=== PATIENT | male | born 1940 | race Caucasian/White ===

== ENCOUNTER → 2016-10-04 08:08 | Outpatient (CLI) | payer MEDICARE ==
[2016-03-25 07:48] VITALS: BMI 33.8
[~2016-10-04 08:08] MED LIST: ASPIRIN81 MG PO; BRILINTA90 MG PO; GLIPIZIDE10 MG PO; HUMALOG 30100 UNITS/ SC; HYDROCHLOROTH12.5 M1 PO; ISOSORBIDE MONO30 M1 PO; LOPRESSOR25 MG PO; MULTI-DAY VITAM1 TAB PO; PLAVIX75 MG PO; PRAVACHOL20 MG PO; PRILOSEC20 MG PO; ZESTRIL40 MG PO
== END | disposition home or self-care (01) ==
LOC: D.NM 08:08
DX: K80.80 Other cholelithiasis without obstruction (principal); R10.9 Unspecified abdominal pain

== ENCOUNTER 2016-11-18 23:49 | Observation (INO) | payer MEDICARE ==
[~2016-11-18] VITALS: Ht 180.3 cm; Wt 109.2 kg
--- NOTE | ~2016-11-18 | HP ---
PATIENT: SHAN RODRIGUEZ MEDICAL RECORD: [id number] ACCOUNT: [id number] LOCATION:[address] : 38 ADMISSION DATE: 11/19/16 HISTORY AND PHYSICAL EXAMINATION Admit Note DATE OF ADMISSION: 11/19/2016 DIAGNOSES: 1. Non-Q-wave myocardial infarction. 2. Coronary artery disease. 3. Previous multivessel percutaneous transluminal coronary angioplasty stent. 4. Hypertension. 5. Hyperlipidemia. 6. Diabetes. HISTORY OF PRESENT ILLNESS: This is a gentleman who presents with increasing episodes of anginal chest discomfort, finally got severe enough yesterday to come to the Emergency Room. Unrelenting pain after multiple sublingual nitros, troponin is 3. He is pain free now. PHYSICAL EXAMINATION: GENERAL APPEARANCE: Well-nourished, well-developed, appears stated age. Level of distress, comfortable. PSYCHIATRIC: Mental status, alert, normal affect. Orientation, oriented to time, place and person. EYES: Lids and conjunctiva, noninjected. No discharge, no pallor. ENT: Lips, teeth, gums, normal dentition. Oropharynx, no cyanosis, no pallor. NECK: Carotid arteries, bilateral normal upstroke, no bruits, no thrills. JUGULAR VEINS: No jugular venous pressure or distention. CERVICAL LYMPH NODES: Nontender, nonenlarged. THYROID: Not enlarged. Nontender. No nodules. LUNGS: Respiratory effort, unlabored. CHEST: Normal curvature. No thoracic deformity. No chest wall tenderness. Percussion, resonant. Auscultation, clear. No wheezes, no rales, no rhonchi. CARDIOVASCULAR: Precordial exam, nondisplaced. No heaves or pericardial thrills. Rate and rhythm, regular. Heart sounds, normal S1, normal S2. No S3, no gallop, no rub. Systolic murmur, not heard. Diastolic murmur, not heard. EXTREMITIES: No cyanosis, no edema. Peripheral pulses, full and equal in all extremities, except as noted. No bruits appreciated. ABDOMEN: Soft, nondistended. Normal aorta. No bruit. Nontender. No masses. Liver, nontender, no hepatomegaly. Spleen, nontender, no splenomegaly. MUSCULOSKELETAL: No joint tenderness. No joint swelling. No erythema. NEUROLOGICAL: Normal gait, normal strength, normal tone. SKIN: Warm and dry. REVIEW OF SYSTEMS: The patient reports easy bruising but reports no swollen glands. The patient reports no fever, no night sweats, no significant weight gain, no significant weight loss. No significant exercise tolerance. The patient reports no dry eyes, no irritation, no vision change. Patient reports no difficulty hearing and no ear pain. Patient reports no frequent nose bleeds or nose and sinus problems. Patient reports on arm pain on exertion. No shortness of breath while lying down. No history of heart murmur. Patient reports no cough, no wheezing or coughing up blood. Patient reports no HISTORY AND PHYSICAL [id number] SHAN RODRIGUEZ abdominal pain, no vomiting. Normal appetite. No diarrhea and not vomiting blood. No nausea and no constipation. Patient reports no incontinence. No difficulty urinating. No hematuria. No increased frequency. Patient reports no muscle aches. No weakness, no arthralgias, no back pain. No swelling of the extremities. Patient reports no abnormal mole, no jaundice, no rashes. Reports no loss of consciousness. No weakness and no numbness. No seizures, dizziness, or headaches. The patient reports no depression, no sleep disturbance, feeling safe in a relationship and no alcohol abuse. Patient reports on fatigue. Reports no runny nose or sinus pressure. No itching, no hives, and no frequent sneezing. OVERALL IMPRESSION: Chest pain, non-Q-wave myocardial infarction. Last cardiac intervention 03/22/2016. Most likely he has recurrent hemodynamically significant coronary artery disease. We will proceed with coronary angiography in the a.m. Further care depends upon findings of the angiography. TRANSINT:[id number] Voice Confirmation ID: [id number] DOCUMENT ID: [id number] ADRIEL ACOSTA MD CC: [id number] DICTATION DATE: 11/19/16 1023 COMPOSITION STONE APPLICATOR: 11/19/16 1035 ADM IN [facility] [address] [place] [address]
--- NOTE | ~2016-11-18 | HEMODYNAMI ---
PATIENT:SHAN RODRIGUEZ MEDICAL RECORD: [id number] : 38 LOCATION:[facility] [address].2109 ADMISSION DATE: 11/19/16 Generatedon:11/20/20168:58 Patient name: SHAN RODRIGUEZ Patient #: [id number] SSN: [id number] : 1940 Date of study: 11/20/2016 Page: Of Hemodynamic Procedure Report Patient Data Patient Demographics Procedure consent was obtained First Name: SHAN Gender: Male Last Name: JENNIFER : 1940 [facility] Initial: Vinicio Age: 76 year(s) Patient #: [id number] Race: SSN: [id number] Additional ID: [id number] Contact details [address]: [address] [place] [address] State: [place] City: [place] Zip code: [address] Past Medical History History of disease Date Diagnosis Comments CAD Hypertension Diabetes Allergies Allergen Reaction Date Comments Reported Natural rubber 09/09/2014 and latex Other allergy 03/25/2016 Latex Bandages Natural rubber 11/20/2016 and latex Admission Admission Data Admission Date: 11/19/2016 Admission Time: 1:41 Room #: D.2109 Height (in.): 71 BSA: 2.32 (m2) Height (cm.): 180.34 BMI: 34.87 (kg/m2) Weight (lbs.): 250 Weight (kg.): 113.4 Lab Results Lab Result Date: 11/19/2016 Lab Result Time: 12:00 Biochemistry Name Units Result Min Max Creatinine mg/dl 1.1 --(--*-)-- 0.6 1.3 CBC Name Units Result Min Max Hemoglobin g/dl 14 --(*---)-- 13.5 17.5 Procedure Procedure Types Cath Procedure Diagnostic Procedure LHC LHC w/Coronaries PCI Procedure Coronary Stent Initial Miscellaneous Procedures Moderate Sedation up to 30 minutes Procedure Description Procedure Date Procedure Date: 11/20/2016 Procedure Start Time: 8:40 Procedure End Time: 8:58 Procedure Staff Name Function Alexander Adams MD Performing Physician Haris Magaña RT Scrub Kwadwo Almaguer RN Nurse Yodit Bennett RT Monitor Procedure Data Cath Procedure Fluoroscopy Diagnostic fluoroscopy Total fluoroscopy Time: 3.6 time: 3.6 min min Diagnostic fluoroscopy Total fluoroscopy dose: 776 dose: 776 mGy mGy Contrast Material Contrast Material Type Amount (ml) Isovue 300 80 Entry Location Entry Primary Successful Side Size Upsize Upsize Entry Closure [place] ccessful Closure Location (Fr) 1 (Fr) 2 (Fr) Remarks Device Remarks Femoral Right 6 Fr Mechanical artery Short Compression Estimated blood loss: 10 ml Diagnostic catheters Device Type Used For End Catheter Placement Diagnostic Terumo 5Fr LV Angiography Union 110cm catheter Diagnostic Terumo 5Fr Left Coronary Union 110cm catheter Angiography Diagnostic Terumo 5Fr Right Coronary Union 110cm catheter Angiography Procedure Complications No complications Procedure Medications Medication Administration Route Dosage Oxygen NC 2 l/min Heparin Flush Bag added to field 2 bags (1000units/500ml NS) 0.9% NaCl I.V. 100 ml/hr Radial Cocktail added to field 1 syringe (Verapomil 2mg/Nitro 400mcg/Heparin 1500units) Fentanyl I.V. 50 mcg Versed I.V. 1 mg Radial Cocktail I.A. 1 syringe (Verapomil 2mg/Nitro 400mcg/Heparin 1500units) Fentanyl I.V. 50 mcg Versed I.V. 1 mg Heparin Bolus I.V. 4000 units Hemodynamics Rest BSA: 2.32 (m2) O2 Consumption: Estimated: 274.25 (ml/min) O2 Consumption indexed : Estimated:118.21 (ml/min/m) Heart Rate: 79 (bpm) Snapshots Pre Cath Intra NCS Post Cath Vital Signs Time Heart Resp SPO2 etCO2 HO1zyev NIBP (mmHg) Rhythm Pain Sedation Rate (ipm) (%) (mmHg) (mmHg) Status Level (bpm) 8:23:22 84 18 94 0 0 167/93(137) NSR 0 (11) 10(A) , No pain 8:27:45 82 18 94 0 0 163/89(132) NSR 0 (11) 10(A) , No pain 8:32:05 85 17 94 0 0 174/98(151) NSR 0 (11) 10(A) , No pain 8:36:27 86 17 93 0 0 165/93(131) NSR 0 (11) 10(A) , No pain 8:40:47 83 19 91 0 0 157/91(124) NSR 0 (11) 9(A) , No pain 8:45:09 87 18 91 0 0 148/73(102) NSR 0 (11) 9(A) , No pain 8:49:27 87 16 94 0 0 148/79(102) NSR 0 (11) 9(A) , No pain 8:53:41 87 17 94 0 0 136/82(115) NSR 0 (11) 9(A) , No pain 8:56:56 86 18 95 0 0 151/81(115) NSR 0 (11) 9(A) , No pain Medications Time Medication Route Dose Verified Delivered Reason Notes Effectiveness by by 8:23:21 Oxygen NC 2 l/min Kwadwo Burkett Per physician Tripp Almaguer RN RN 8:23:32 Heparin Flush added 2 bags Kwadwo Burkett used for Bag to Tripp Almaguer RN procedure (1000units/500ml RN NS) 8:23:43 0.9% NaCl I.V. 100 Kwadwo Burkett Per physician ml/hr Tripp Almaguer RN RN 8:23:52 Radial Cocktail added 1 Kwadwo Burkett used for (Verapomil to syringe Tripp Almaguer RN procedure 2mg/Nitro RN 400mcg/Heparin 1500units) 8:36:28 Fentanyl I.V. 50 mcg Kwadwo Cruzy for sedation Tripp Almaguer RN RN 8:36:35 Versed I.V. 1 mg Kwadwo Burkett for sedation Tripp Almaguer RN RN 8:42:47 Radial Cocktail I.A. 1 Kwadwo Alexander for (Verapomil syringe Tripp Adams MD vasodilation 2mg/Nitro RN 400mcg/Heparin 1500units) 8:42:53 Fentanyl I.V. 50 mcg Kwadwo Kwadwo for sedation Tripp Almaguer RN RN 8:42:58 Versed I.V. 1 mg Kwadwo Kwadwo for sedation Tripp Almaguer RN RN 8:49:45 Heparin Bolus I.V. 4000 Kwadwo Burkett for units Tripp Almaguer RN anticoagulation mechanical technical service specialist Log Time Note 8:01:23 Kwadwo Almaguer RN sent for patient. Start room use. 8:01:24 Time tracking: Regular hours 8:01:28 Plan of Care:Hemodynamics will remain stable., Cardiac rhythm will remain stable., Comfort level will be maintained., Respiratory function will remain adequate., Patient/ family verbilizes understanding of procedure., Procedure tolerated without complication., Recovers from procedure without complications.. 8:12:07 Patient Height : 71 cm 8:12:10 Patient Weight : 250 kg 8:12:20 H&P Date Dictated: 11/19/2016 Within 30 days and on chart.. 8:12:24 Is patient on blood thinner?Yes 8:12:27 ACC The patient was administered the following blood thiners within the last 24 hours: ACCAspirin, ACCPlavix 8:12:30 Patient diabetic? Yes. 8:13:41 If diabetic: On Metformin? No 8:16:01 Patient received from PCU to CCL 1 Alert and oriented. Tansferred to table in Supine position. 8:16:02 Warm blankets applied, and iván hugger turned on for patient comfort. 8:16:03 Correct patient and procedure confirmed by team. 8:16:04 Signed procedure consent form obtained from patient. 8:16:05 ECG and BP/O2 sat monitors applied to patient. 8:16:06 Full Disclosure recording started 8:22:12 Vital chart was started 8:23:21 Oxygen 2 l/min NC was administered by Kwadwo Almaguer RN; Per physician; 8:23:32 Heparin Flush Bag (1000units/500ml NS) 2 bags added to field was administered by Kwadwo Almaguer RN; used for procedure; 8:23:43 0.9% NaCl 100 ml/hr I.V. was administered by Kwadwo Almaguer RN; Per physician; 8:23:52 Radial Cocktail (Verapomil 2mg/Nitro 400mcg/Heparin 1500units) 1 syringe added to field was administered by Kwadwo Almaguer RN; used for procedure; 8:29:02 Rhythm: sinus rhythm 8:29:06 Pre-procedure instructions explained to patient. 8:29:06 Pre-op teaching completed and patient verbalized understanding. 8:29:07 Family in waiting room. 8:29:09 Patient NPO since Midnight. 8:29:18 Patient allergic to Natural rubber and latex 8:29:20 Is the patient allergic to Iodine/contrast media? No. 8:29:27 Previous problem with sedation/anesthesia? No ? 8:29:28 Snore? Yes 8:29:31 Sleep apnea? No 8:29:32 Deviated septum? No 8:29:33 Opens mouth fully? Yes 8:29:34 Sticks out tongue? Yes 8:29:38 Airway obstruction? No ? 8:29:43 Dentures? Yes Out 8:29:47 Pre procedure: right dorsailis pedis pulse 2+ Normal; easily identifiable; not easily obliterated 8:29:49 Patient pain scale 0/10 ?. 8:29:54 IV patent on arrival in right hand with 0.9% NaCl at [facility]. 8:30:28 Lab Result : Creatinine 1.1 mg/dl 8:30:28 Lab Result : Hemoglobin 14 g/dl 8:30:32 Lab results completed and on chart. 8:30:36 Right Radial & Right Groin area was prepped with chlora-prep and draped in sterile fashion 8:30:37 Alarms reviewed by R. N. 8:30:37 Sharps counted by scrub and verified by R.N. 8:30:38 Final Timeout: patient, procedure, and site verified with staff and physician. All members of the team are in agreement. 8:30:40 Right Radial site verified by team. 8:30:43 Physical assessment completed. ASA score P 2 - A patient with mild systemic disease as per Alexander Adams MD. 8:30:45 Sedation plan: IV Moderate Sedation Versed, Fentanyl 8:32:38 Use device set Radial Dx 8:32:39 Acist Syringe opened to sterile field. 8:32:39 Medline Cath Pack opened to sterile field. 8:32:39 Bag Decanter opened to sterile field. 8:32:40 Terumo 6Fr Slender Glidesheath opened to sterile field. 8:32:40 St Charli 260cm J .035 wire opened to sterile field. 8:32:40 Acist Hand Control opened to sterile field. 8:32:41 Acist Manifold opened to sterile field. 8:32:41 Tegaderm 4 x 4 opened to sterile field. 8:32:41 MBrace Wrist Support opened to sterile field. 8:36:28 Fentanyl 50 mcg I.V. was administered by Kwadwo Almaguer RN; for sedation; 8:36:35 Versed 1 mg I.V. was administered by Kwadwo Almaguer RN; for sedation; 8:38:58 Zero performed for pressure channel P1 8:39:04 Baseline sample Acquired. 8:40:44 Procedure started. 8:40:48 Local anesthetic to right radial artery with Lidocaine 2% by Alexander Adams MD.INITIAL ACCESS ONLY 8:41:46 A 6 Fr Short sheath was inserted into the Right Femoral artery 8:42:24 A Diagnostic Terumo 5Fr Union 110cm catheter was advanced over the wire and used for LV Angiography. 8:42:47 Radial Cocktail (Verapomil 2mg/Nitro 400mcg/Heparin 1500units) 1 syringe I.A. was administered by Alexander Adams MD; for vasodilation; 8:42:53 Fentanyl 50 mcg I.V. was administered by Kwadwo Almaguer RN; for sedation; 8:42:58 Versed 1 mg I.V. was administered by Kwadwo Almaguer RN; for sedation; 8:43:29 LV gram done using PAIZ 8:43:34 EF : 35 % 8:43:38 Injector settings: Ml/sec: 5, Volume: 15, 8:43:54 A Diagnostic Terumo 5Fr Union 110cm catheter was advanced over the wire and used for Left Coronary Angiography. 8:45:58 A Diagnostic Terumo 5Fr Union 110cm catheter was advanced over the wire and used for Right Coronary Angiography. 8:46:47 Catheter removed. 8:47:07 Edgeley Data Stream CBOT Choice PT Extra Support J 300cm .014 gu opened to sterile field. 8:47:07 Cordis 6FR XBLAD 3.5 guide catheter opened to sterile field. 8:47:08 Merit BasixCompak Inflation Kit opened to sterile field. 8:48:36 6 Fr XBLAD 3.5 guide catheter was inserted over the wire 8:49:45 Heparin Bolus 4000 units I.V. was administered by Kwadwo Almaguer RN; for anticoagulation; 8:50:44 Choice PT ES wire advanced. 8:50:51 Inflation number: 1 A Euphora 2.5 x 20 Balloon was prepped and advanced across the Prox LAD, then inflated to 13 HANNAH for 0:05 (min:sec). 8:51:12 Balloon removed over the wire. 8:52:53 Inflation Number: 2 A Horatio OTW 2.5 x 22 stent was prepped and advanced across the Prox LAD. The stent was deployed at 13 HANNAH for 0:07 (min:sec). 8:53:08 Inflation number: 3 The stent balloon was then re-inflated across the Prox LAD to 17 HANNAH for 0:07 (min:sec). 8:53:26 Stent catheter was removed intact over wire. 8:53:26 Wire removed. 8:53:27 Guide catheter removed. 8:53:35 Sheath removed intact; hemostasis achieved with Mechanical Compression to the Right Femoral artery. 8:53:37 Procedure ended.(Physican Out) 8:54:25 Fluoroscopy time 03.60 minutes. 8:54:28 Flurop Dose total: 776 8:54:28 Fluoroscopy dose: 776 mGy 8:54:36 Contrast amount:Isovue 300 80ml. 8:54:38 Sharps counted by scrub and verified by R.N. 8:54:40 TR band inflated with 12cc of air. 8:54:41 Insertion/operative site no bleeding no hematoma. 8:54:47 Post right radial artery:stable, clean and dry 8:54:49 Post Procedure Pulses reassessed and unchanged 8:54:52 Post-procedure physical assessment completed. ASA score P 2 - A patient with mild systemic disease as per Alexander Adams MD. 8:54:57 Post procedure rhythm: unchanged. 8:55:00 Estimated blood loss: 10 ml 8:55:01 Post procedure instruction explained to patient.Patient verbalizes understanding. 8:55:01 Patient needs reinforcement of post procedure teaching. 8:55:11 Procedure type changed to Cath procedure, Diagnostic procedure, LHC, LHC w/Coronaries, PCI procedure, Coronary Stent Initial, Miscellaneous Procedures, Moderate Sedation up to 30 minutes 8:55:16 Procedure Complication : No complications 8:55:19 See physician's report for complete and final results. 8:56:10 Terumo TR Band Standard opened to sterile field. 8:56:40 Procedure and supply charges have been captured, reviewed, submitted and are correct. 8:58:21 Vital chart was stopped 8:58:23 Report given to PCU. 8:58:26 Patient transfered to PCU with Bed. 8:58:29 Procedure ended. 8:58:29 Full Disclosure recording stopped 8:58:35 End room use (Document Last) Intervention Summary Intervention Notes Time ActionType Lesion and Equipment Action# Pressure Duration Attributes Used 8:50:51 Inflate Prox LAD Euphora 1 13 00:05 balloon 2.5 x 20 Balloon 8:52:53 [address] stent Prox LAD Horatio OTW 2 13 00:07 2.5 x 22 stent 8:53:08 Reinflate Prox LAD Lonnie OTW 3 17 00:07 stent 2.5 x 22 balloon stent Device Usage Item Name Manufacture Quantity Catalog Number Hospital Part Current Minim al Lot# / Charge Number Stock Stock Serial# Code Acist Acist 1 68683 210011 128487 745224 20 Syringe Medical Systems Inc Medline Cardinal 1 [id number] 531012 12621 179010 5 Cath Pack Health Bag Microtek 1 2002S 497339 44387 636335 5 VODECLIC Inc. Terumo 6Fr Terumo 1 [id number] 959724 531681 629042 [address] Char[address] St Charli 1 308975 101465 677165 374311 30 260cm J .035 wire Acist Hand Acist 1 18695 307735 732888 950029 5 Control Medical Systems Inc Acist Acist 1 16056 920812 883777 972473 5 Manifold Medical Systems Inc Tegaderm 4 3M 1 1626W 730807 752387 027423 5 x 4 MBrace Advanced 1 140-0250-00 011809 65367 371386 5 Wrist Vascular Support Dynamics Diagnostic Terumo 1 40-2152 887316 991675 780881 5 Terumo 5Fr Union 110cm catheter Edgeley Sci Edgeley 1 [id number] 296531 403876 977142 5 Choice PT Scientific Extra Support J 300cm .014 gu Cordis 6FR Cardinal 1 [id number] 597092 236080 444870 10 XBLAD 3.5 Health guide catheter Merit Merit 1 [id number] 960210 604759 017941 15 RockeTalk Medical Inflation Kit Euphora 2.5 Medtronic 1 [id number] 627475 398591 179009 5 [id number] x 20 Balloon Lonnie OTW Medtronic 1 [id number] 232980 04276 508043 5 [id number] 2.5 x 22 stent Terumo TR Terumo 1 [id number] 069581 400958 185640 40 Band Standard Signature Audit Elcho Stage Time Signature Unsigned Intra-Procedure 11/20/2016 Yodit 8:58:46 AM Counts RT(R) Signatures Monitor : Yodit Signature : Counts RT Date : Time : [place] [id number] [facility], [facility]901
--- NOTE | ~2016-11-18 | OP ---
PATIENT NAME: SHAN RODRIGUEZ MEDICAL RECORD: [id number] :38 LOCATION:D.M2 D.2109 ADMISSION DATE:11/19/16 SURGEON: ADRIEL ACOSTA MD DATE OF OPERATION: 11/20/2016 PROCEDURES: 1. PTCA stent LAD. 2. Left heart catheterization. 3. Selective coronary angiography. 4. Left ventriculogram. INDICATION: Unstable angina. PROCEDURE IN DETAIL: After informed consent was obtained and after a detailed explanation of the risks, benefits as well as alternative therapies, the patient elected to proceed with angiogram and angioplasty. The right radial area was prepped and draped in normal sterile fashion. The right radial artery was cannulated via modified Seldinger technique with placement of 6-Egyptian sheath. All catheters exchanged through this sheath. FINDINGS: 1. The left main is with no significant angiographic disease. 2. Left anterior descending has previously placed stents. The stents in the LAD are widely patent, stents in the diagonal were closed. This is unchanged from previous angiography; however, the LAD has progression of disease after the stent up to 80%. 3. The left circumflex is closed. This is unchanged from previous angiography. 4. The right coronary has mild irregularities, previously placed stents are widely patent. PTCA STENT OF THE LAD: Stent used is a 2.5 x 22 mm [place]. Result was 0% residual stenosis. OVERALL IMPRESSION: Successful percutaneous transluminal coronary angioplasty stent of the left anterior descending going from 80% initial stenosis to 0% residual. TRANSINT:[id number] Voice Confirmation ID: [id number] DOCUMENT ID: [id number] ADRIEL ACOSTA MD CC: [id number] DICTATION DATE: 11/20/16 09 EVENT MARKETING ASSISTANT: 11/20/16 0937 ADM IN [facility] [address] [place] [address]
--- NOTE | ~2016-11-18 | DS ---
PATIENT:SHAN RODRIGUEZ :38 MEDICAL RECORD: [id number] DISCHARGE SUMMARY ADMISSION DATE: 11/19/16 DISCHARGE DATE: DATE OF DISCHARGE: 11/20/2016 DISCHARGE DIAGNOSES: 1. Unstable angina. 2. Coronary artery disease. 3. Percutaneous transluminal coronary angioplasty stent left anterior descending this admission. 4. Hypertension. 5. Hyperlipidemia. HOSPITAL COURSE: Mr. Rodriguez presents with unstable anginal symptomatology, found to have significant disease of the LAD, underwent successful PTCA stent of the LAD, had an uneventful postop course. He was discharged home with no change in medications as he is already on aspirin and Plavix. We will follow up with [facility] in 1 month. TRANSINT:[id number] Voice Confirmation ID: [id number] DOCUMENT ID: [id number] ADRIEL ACOSTA MD CC: [id number] DICTATION DATE: 11/20/1658 SCORER HELPER: 11/20/16 0948 ADM IN [facility] [address] [place] [address]
[2016-11-19 00:29] LABS: BASOPHILS 0.3 % (0-2); HEMATOCRIT 41.1 % (42.0-54.0); IMMATURE GRANULOCYTES 0.9 % (0-5); LYMPHOCYTES 27.8 % (15-50); MCH 30.6 pg (26.0-34.0); MCHC 34.1 g/dL (31.0-37.0); MCV 89.7 fL (80.0-100.0); MEAN PLATELET VOLUME 10.3 fL (7.4-10.4); MONOCYTES 9.7 % (2-11); NEUTROPHILS 57.3 % (40-80); PLATELET COUNT 151 10x3/uL (130-400); RBC 4.58 10x6/uL (4.20-6.10); RDW 13.3 % (11.5-14.5); WBC 6.7 10x3/uL (4.8-10.8)
[2016-11-19 00:43] LABS: ALBUMIN 3.5 g/dL (3.4-5.0); ALKALINE PHOSPHATASE 83 U/L (46-116); ALT (SGPT) 29 U/L (10-68); BILIRUBIN - TOTAL 0.61 mg/dL (0.2-1.3); CALC OSMOLALITY 282 mosm/kg (275-300); CALCIUM 8.4 mg/dL (8.5-10.1); CARBON DIOXIDE 25.4 mmol/L (21.0-32.0); CHLORIDE - SERUM 98 mmol/L (98-107); CREATININE - SERUM 1.1 mg/dL (0.6-1.3); POTASSIUM - SERUM 4.7 mmol/L (3.5-5.1); PROTEIN - SERUM 7.3 g/dL (6.4-8.2); SODIUM 134 mmol/L (136-145); UREA NITROGEN 18 mg/dL (7-18); eGFR NON AFRICAN AMERICAN 69 mL/min (90-120)
[2016-11-19 00:44] LABS: GLUCOSE 338 mg/dL (74-106)
[2016-11-19 01:06] LABS: CHOL - HDL RATIO 3.2 ratio (2.3-4.9); CHOLESTEROL, TOTAL 162 mg/dL (0-200); CKMB 4.2 U/L (0.0-3.6); CREATINE KINASE 211 UL (21-232); HDL CHOLESTEROL 50 mg/dL (32-96); LDL CHOLESTEROL 85 mg/dL (0-100); LDL-HDL RATIO 1.7 ratio (1.5-3.5); TRIGLYCERIDE 139 mg/dL (30-200)
[2016-11-19 01:07] LABS: TROPONIN-I 0.103 ng/mL (0.000-0.060)
[2016-11-19 01:55] LABS: APPEARANCE CLEAR (CLEAR); BACTERIA NONE SEEN /hpf (NONE SEEN); BILIRUBIN NEGATIVE (NEGATIVE); COLOR YELLOW (YELLOW); EPITHELIAL CELLS NSEEN /hpf (0-5); GLUCOSE 500 mg/dL (NEGATIVE); KETONE NEGATIVE (NEGATIVE); LEUKOCYTE ESTERASE NEGATIVE (NEGATIVE); NITRITE NEGATIVE (NEGATIVE); PROTEIN TRACE mg/dL (NEGATIVE); RED CELLS - URINE 0-5 /hpf (0-5); UROBILINOGEN NORMAL (NORMAL); WHITE CELLS - URINE NSEEN /hpf (0-5)
[2016-11-19 02:32] VITALS: BMI 34.9
[2016-11-19 04:00] VITALS: BP 148/76
[2016-11-19 05:58] LABS: CREATINE KINASE 236 UL (21-232)
[2016-11-19 05:59] LABS: CKMB 21.3 U/L (0.0-3.6); TROPONIN-I 3.238 ng/mL (0.000-0.060)
--- NOTE | 2016-11-19 07:00 | NUR ---
INITIAL ROUNDS MADE. ASSESS COMPLETE PER FLOWSHEET. FAMILY AT BEDSIDE. PT DENIES NEEDS OR C/O. NO CP OR SOB AT THIS TIME. PT NPO UNTIL DR ACOSTA ROUNDS.
[2016-11-19 08:00] VITALS: BP 146/70
--- NOTE | 2016-11-19 09:00 | NUR ---
DR ACOSTA ADVISES PT CAN EAT. WILL BE NPO AFTER MN FOR LHC IN AM. DIETARY NOTIFIED WITH NEED OF TRAY.
--- NOTE | 2016-11-19 10:00 | NUR ---
CONSENTS FOR LHC OBTAINED AND PLACED ON CHART.
[2016-11-19] MEDS ORDERED: LANTUS SOL100 UNIT/1 SC (10:35)
[2016-11-19 12:00] VITALS: BP 153/68
--- NOTE | 2016-11-19 12:00 | NUR ---
SITTING UP IN BED EATING LUNCH, DENIES NEEDS OR C/O AT THIS TIME. FSBS 158. PT STATES THAT HE SEES DR COHEN FOR HIS DIABETIC MANAGEMENT. PER HIS HOME DOSE SS, PT IS GIVEN 20 UNITS HUMALOG INSULIN FOR CURRENT BS.
[2016-11-19 12:35] LABS: CKMB 35.3 U/L (0.0-3.6); CREATINE KINASE 282 UL (21-232); TROPONIN-I 6.186 ng/mL (0.000-0.060)
[2016-11-19 13:16] VITALS: Ht 180.3 cm; Wt 109.2 kg
[2016-11-19 16:00] VITALS: BP 140/63
--- NOTE | 2016-11-19 17:00 | NUR ---
FSBS 183, PT GIVEN 30 UNITS HUMALOG INSULIN PER HIS HOME DOSE SS.
[2016-11-19 17:43] LABS: TROPONIN-I 5.07 ng/mL (0.000-0.060)
[2016-11-19 19:00] VITALS: BP 172/75
--- NOTE | 2016-11-19 22:37 | NUR ---
INITIAL ROUNDS COMPLETED AT 1914 HRS. PT DENIED ANY DISCOMFORT. ASSESSMENT COMPLETED AT 1954 HRS. VSS. SR PER CM HR 76. IV TO R HADN SL. LUNGS ESSENTIALLY CTA. ALERT AND ORIENTED TO PERSON, PLACE AND TIME. PM FSBS 80. PM LANTUS HELD PT NPO AFTER MIDNIGHT. PM SNACK SERVED. PT CURRENTLY RESTING WITH EYES CLOSED. RESP EVEN AND REGULAR. SR UP X2, CALL LIGHT WITHIN REACH.
[2016-11-20] VITALS: BP 123/47
--- NOTE | 2016-11-20 00:22 | NUR ---
PT RESTING WITH EYES CLOSED. RESP EVEN AND REGULAR. SR UP X2, CALL LIGHT WITHIN REACH.
--- NOTE | 2016-11-20 01:54 | NUR ---
PT RESTING WITHEYES CLOSED. RESP EVEN AND REGULAR. SR UP X2,CALL LIGHT WITHIN REACH.
[2016-11-20 04:00] VITALS: BP 125/49
--- NOTE | 2016-11-20 04:37 | NUR ---
VSS. PT DENIES ANY DISCOMFORT. WILL CONTINUE TO MONITOR.
--- NOTE | 2016-11-20 06:31 | NUR ---
VSS THROUGHOUT NIGHT. SR PER CM. AM FSBS 158. INSULIN HELD PT NPO FOR AM LHC. PT IN SHOWER AT THIS TIME. NEEDS MET; WILL CONTINUE TO MONITOR.
--- NOTE | 2016-11-20 07:00 | NUR ---
INITIAL ROUNDS MADE. DISCUSSED PLAN OF CARE AND NPO. AT BEDSIDE. NO NEEDS OR C/O AT THIS TIME. WILL CONT TO MONITOR.
--- NOTE | 2016-11-20 07:50 | NUR ---
PRE OP MEDS GIVEN ORDERED.
--- NOTE | 2016-11-20 08:00 | NUR ---
PT TAKEN TO [facility] VIA BED.
[2016-11-20 08:22] VITALS: BP 164/70
--- NOTE | 2016-11-20 09:05 | NUR ---
PT RETURNED TO ROOM S/P LHC, RIGHT WRIST STABLE WTIH TR BAND IN PLACE. NO BLEEDING OR BRUISING NOTED. VSS. TELE SR. WILL MONITOR.
--- NOTE | 2016-11-20 10:56 | NUR ---
ASSISTED PT UP TO BATHROOM, NO DIFFICULTIES URINATING. PT WEAK BUT OTHERWISE NO C/O.
--- NOTE | 2016-11-20 12:00 | NUR ---
SITTING UP EATING LUNCH, DENIES NEEDS OR C/O AT THIS TIME. CONT TO MONITOR. RT WRIST STABLE, VSS.
--- NOTE | 2016-11-20 13:00 | NUR ---
TR BAND SUCCESSFULLY REMOVED WITH NO BLEEDING, BRUISING. IVSL REMOVED FROM RT HAND, CATH TIP INTACT. VSS.
--- NOTE | 2016-11-20 13:20 | NUR ---
DC INSTRUCTIONS GIVEN, NO QUESTIONS OR CONCERNS VOICED AT THIS TIME. PT AND VERBALIZE UNDERSTANDING.
--- NOTE | 2016-11-20 13:30 | NUR ---
TAKEN DOWNSTAIRS VIA WC.
== END 2016-11-20 13:30 | disposition home or self-care (01) ==
LOC: D.ER 23:49 → D.M2 11-19 01:41 → OBSVTIME 11-19 01:41 → D.M2 11-19 01:41
PROVIDERS: Family Medicine; ADMIT Internal Medicine Interventional Cardiology
DX: I21.4 Non-ST elevation (NSTEMI) myocardial infarction (principal); I25.110 Atherosclerotic heart disease of native coronary artery with unstable angina pectoris; I10 Essential (primary) hypertension; E78.5 Hyperlipidemia, unspecified; E11.9 Type 2 diabetes mellitus without complications
CPT/HCPCS: 93458; C9600

== ENCOUNTER 2016-11-21 09:33 | Emergency (ER) | payer MEDICARE ==
[2016-11-19 13:16] VITALS: BMI 33.3
[~2016-11-21 09:33] MED LIST changes: +LANTUS SOL100 UNIT/1 SC
[2016-11-21 10:03] LABS: BASOPHILS 0.2 % (0-2); EOSINOPHILS 0.9 % (0-7); HEMATOCRIT 42.8 % (42.0-54.0); HEMOGLOBIN 14.7 g/dL (13.5-17.5); IMMATURE GRANULOCYTES 0.7 % (0-5); LYMPHOCYTES 18.2 % (15-50); MCH 30.9 pg (26.0-34.0); MCHC 34.3 g/dL (31.0-37.0); MCV 89.9 fL (80.0-100.0); MONOCYTES 7.8 % (2-11); NEUTROPHILS 72.2 % (40-80); PLATELET COUNT 145 10x3/uL (130-400); RBC 4.76 10x6/uL (4.20-6.10); RDW 13.1 % (11.5-14.5); WBC 9.6 10x3/uL (4.8-10.8)
[2016-11-21 10:24] LABS: ALBUMIN 3.6 g/dL (3.4-5.0); ANION GAP 12.9 mmol/L (8-16); BILIRUBIN - TOTAL 0.83 mg/dL (0.2-1.3); CALCIUM 9.1 mg/dL (8.5-10.1); CARBON DIOXIDE 28.8 mmol/L (21.0-32.0); CREATININE - SERUM 1.3 mg/dL (0.6-1.3); POTASSIUM - SERUM 4.7 mmol/L (3.5-5.1); PROTEIN - SERUM 7.8 g/dL (6.4-8.2)
== END 2016-11-21 13:15 | disposition home or self-care (01) ==
LOC: D.ER 09:33
PROVIDERS: Family Medicine
DX: S32.019A Unspecified fracture of first lumbar vertebra, initial encounter for closed fracture (principal); W19.XXXA Unspecified fall, initial encounter; Y93.89 Activity, other specified; Y92.89 Other specified places as the place of occurrence of the external cause; E11.9 Type 2 diabetes mellitus without complications; Z79.4 Long term (current) use of insulin; I10 Essential (primary) hypertension; I44.4 Left anterior fascicular block

== ENCOUNTER → 2016-12-02 12:29 | Outpatient (CLI) | payer MEDICARE ==
[2016-11-19 13:16] VITALS: BMI 33.3
== END | disposition home or self-care (01) ==
LOC: D.LABREF 12:29
DX: N40.0 Benign prostatic hyperplasia without lower urinary tract symptoms (principal)

== ENCOUNTER → 2016-12-05 13:04 | Outpatient (CLI) | payer MEDICARE ==
[2016-11-19 13:16] VITALS: BMI 33.3
== END | disposition home or self-care (01) ==
LOC: D.CT 13:04
DX: S32.009A Unspecified fracture of unspecified lumbar vertebra, initial encounter for closed fracture (principal)

== ENCOUNTER → 2017-05-25 12:29 | Outpatient (CLI) | payer MEDICARE ==
[2016-11-19 13:16] VITALS: BMI 33.3
== END | disposition home or self-care (01) ==
LOC: D.MRI 12:29
DX: M54.16 Radiculopathy, lumbar region (principal)

== ENCOUNTER 2018-06-07 21:43 | Emergency (ER) | payer MEDICARE ==
[~2018-06-07] VITALS: Ht 180.3 cm; Wt 112.5 kg
[2018-06-07 21:51] VITALS: Ht 180.3 cm; Wt 112.5 kg
[2018-06-07 21:59] LABS: HEMATOCRIT 40.8 % (42.0-54.0); HEMOGLOBIN 14.3 g/dL (13.5-17.5); MCH 31.3 pg (26.0-34.0); MCV 89.3 fL (80.0-100.0); MEAN PLATELET VOLUME 10.5 fL (7.4-10.4); PLATELET COUNT 160 10x3/uL (130-400); RBC 4.57 10x6/uL (4.20-6.10); RDW 13.1 % (11.5-14.5); WBC 9.2 10x3/uL (4.8-10.8)
[2018-06-07 22:08] LABS: INR 0.96 (0.85-1.17); PROTIME 12.3 SECONDS (11.6-15.0)
[2018-06-07 22:18] LABS: ALBUMIN 3.6 g/dL (3.4-5.0); ALKALINE PHOSPHATASE 85 U/L (46-116); ALT (SGPT) 32 U/L (10-68); BILIRUBIN - TOTAL 0.52 mg/dL (0.2-1.3); CALC OSMOLALITY 288 mosm/kg (275-300); CALCIUM 9.1 mg/dL (8.5-10.1); CARBON DIOXIDE 26.1 mmol/L (21.0-32.0); CHLORIDE - SERUM 101 mmol/L (98-107); CREATININE - SERUM 1.4 mg/dL (0.6-1.3); GLUCOSE 231 mg/dL (74-106); POTASSIUM - SERUM 3.7 mmol/L (3.5-5.1); PROTEIN - SERUM 7.9 g/dL (6.4-8.2); SODIUM 140 mmol/L (136-145); UREA NITROGEN 22 mg/dL (7-18); eGFR NON AFRICAN AMERICAN 52 mL/min (90-120)
[2018-06-07 22:28] LABS: AMYLASE - SERUM 59 U/L (25-115); CKMB 3.9 U/L (0.0-3.6); THYROID STIMULATING HORMONE 4.11 uIU/mL (0.36-3.74)
[2018-06-07 22:30] LABS: TROPONIN-I < 0.017 ng/mL (0.000-0.060)
[2018-06-07 22:41] LABS: EOSINOPHILS 2 % (0-7); LYMPHOCYTES 69 % (15-50); MONOCYTES 4 % (2-11); NEUTROPHILS 22 % (40-80); PLATELET ESTIMATE NORMAL
[2018-06-07 23:35] VITALS: BP 138/64
== END 2018-06-08 | disposition short-term general hospital (02) ==
LOC: D.ER 21:43
PROVIDERS: Family Medicine
DX: I61.5 Nontraumatic intracerebral hemorrhage, intraventricular (principal); G81.94 Hemiplegia, unspecified affecting left nondominant side; I63.89 Other cerebral infarction; R07.9 Chest pain, unspecified; I10 Essential (primary) hypertension